=== PATIENT | male | born 1935 | race Caucasian/White ===

== ENCOUNTER 2016-11-08 12:26 | Outpatient (CLI) | payer OTHER, MEDICARE ==
[2016-11-08 12:57] LABS: BASOPHILS # (AUTO) 0.1 K/uL (0.0-0.2); BASOPHILS % (AUTO) 0.5 % (0.0-2.0); EOSINOPHILS # (AUTO) 0.7 K/uL (0.0-0.4); HEMATOCRIT 41.2 % (36-54); HEMOGLOBIN 14.1 g/dL (14.0-18.0); LYMPHOCYTES # (AUTO) 5.5 K/uL (1.0-5.5); LYMPHOCYTES % (AUTO) 47.9 % (20.5-51.5); MEAN CORPUSCULAR HEMOGLOBIN 32 pg (27-31); MEAN CORPUSCULAR HGB CONC 34 % (32-36); MEAN CORPUSCULAR VOLUME 94 fL (79.0-98.0); MONOCYTES # (AUTO) 0.8 K/uL (0.0-1.0); MONOCYTES % (AUTO) 6.7 % (1.7-9.3); NEUTROPHILS # (AUTO) 4.5 K/uL (1.8-7.7); NEUTROPHILS % (AUTO) 38.9 % (40.0-70.0); PLATELET COUNT (AUTO) 194 K/uL (130-430); RED BLOOD CELL COUNT(AUTO) 4.36 MIL/uL (4.2-6.2); RED CELL DISTRIBUTION WIDTH 12.1 % (9.0-15.0); WHITE BLOOD COUNT (AUTO) 11.6 K/uL (4.8-10.8)
[2016-11-08 14:04] LABS: ERYTHROCYTE SEDIMENTATION RATE 14 MM/HR (0-15)
== END 2016-11-08 19:20 | disposition home or self-care (01) ==
LOC: SRD 12:26
PROVIDERS: ATTEND Family Medicine
DX: M19.072 Primary osteoarthritis, left ankle and foot (principal); M79.89 Other specified soft tissue disorders; M77.32 Calcaneal spur, left foot; I10 Essential (primary) hypertension
CPT/HCPCS: 36415; 85025; 85651-TC; 86038; 86140

== ENCOUNTER 2017-04-10 21:52 | Inpatient (IN) | payer OTHER, MEDICARE ==
[~2017-04-10] VITALS: Ht 198.1 cm; Wt 104.3 kg
[2017-04-10 21:58] VITALS: BP_SYST 169
[2017-04-10 22:40] LABS: HEMATOCRIT 42.9 % (36-54); HEMOGLOBIN 14.4 g/dL (14.0-18.0); MEAN CORPUSCULAR HEMOGLOBIN 32 pg (27-31); MEAN CORPUSCULAR HGB CONC 34 % (32-36); MEAN CORPUSCULAR VOLUME 94 fL (79.0-98.0); PLATELET COUNT (AUTO) 146 K/uL (130-430); RED BLOOD CELL COUNT(AUTO) 4.55 MIL/uL (4.2-6.2); RED CELL DISTRIBUTION WIDTH 13.3 % (9.0-15.0)
[2017-04-10 22:44] LABS: ANION GAP 8 (5-15); CALCIUM 9.6 mg/dL (8.4-11.0); CHLORIDE 101 mmol/L (98-107); CREATININE 1.33 mg/dL (0.55-1.30); GLUCOSE 98 mg/dL (70-99); POTASSIUM 3.3 mmol/L (3.5-5.1); SODIUM SERUM 139 mmol/L (136-145); UREA NITROGEN, BLOOD 21 mg/dL (8-21)
[2017-04-10 22:45] LABS: WHITE BLOOD COUNT (AUTO) 36.5 K/uL (4.8-10.8)
[2017-04-10 22:48] LABS: ALANINE AMINOTRANSFERASE 35 U/L (12-78); ALBUMIN 3.8 g/dL (3.4-4.8); ASPARTATE AMINOTRANSFERASE 19 U/L (10-37); TOTAL BILIRUBIN 0.8 mg/dL (0.0-1.0)
[2017-04-10 22:50] LABS: INR 1.1 (0.80-1.20); PROTHROMBIN TIME 11.6 SECS (9.5-12.5)
[2017-04-10] MEDS ORDERED: VANCOMYCIN HCL 1,000 MG in NS 250 ML IV ONE (23:00)
[2017-04-10] MEDS ORDERED: PIPERACILLIN/TAZO 3.375 GM in NS 50 ML IV ONE (23:00)
[2017-04-10] MEDS ORDERED: NACL 0.9% 1,000 ML IV ONE (23:15)
[2017-04-10 23:19] LABS: ATYPICAL LYMPHOCYTES % 0 % (0-0); BAND % (MANUAL) 3 % (0-6); BASOPHILS % (MANUAL) 0 % (0-2); EOSINOPHILS % (MANUAL) 1 % (0-7); LYMPHOCYTES % (MANUAL) 58 % (20-46); MONOCYTES % (MANUAL) 3 % (0-11)
[2017-04-10] MEDS ORDERED: hydrALAZINE HCL 20 MG/ML VIAL IVP ONE (23:30)
[2017-04-10] MEDS ORDERED: PIPERACILLIN/TAZOBACTAM 3.375 GM/VIAL (ZOSYN) IV ONE (23:48)
[2017-04-11] MEDS ORDERED: METO25TA3 PO (00:02)
[2017-04-11] MEDS ORDERED: LOSA50TA3 PO (00:02)
[2017-04-11] MEDS ORDERED: HYDR25TA4 PO (00:02)
[2017-04-11] MEDS ORDERED: VANCOMYCIN HCL 1000 MG/VIAL IV ONE (00:06)
[2017-04-11] MEDS ORDERED: NACL 0.9% 1,000 ML IV ONE (00:15)
[2017-04-11] MEDS ORDERED: ONDANSETRON HCL 4 MG/2 ML VIAL IVP ONE (00:45)
[2017-04-11] MEDS ORDERED: TEMAZEPAM 7.5 MG CAPSULE PO PRN (01:00)
[2017-04-11 01:48] VITALS: BP_SYST 143
[2017-04-11] MEDS: NACL 0.9% 1,000 ML IV SCH ×2 (03:11→22:47)
[2017-04-11 04:00] VITALS: BP_SYST 132
[2017-04-11 05:36] LABS: BILIRUBIN,URINE NEGATIVE (NEGATIVE); CLARITY/URINE CLEAR (CLEAR); COLOR,URINE YELLOW (YELLOW); GLUCOSE,URINE NEGATIVE (NEGATIVE); KETONES,URINE NEGATIVE (NEGATIVE); LEUKOCYTE ESTERASE ,URINE NEGATIVE (NEGATIVE); NITRITE, URINE NEGATIVE (NEGATIVE); PROTEIN URINE NEGATIVE (NEGATIVE); UROBILINOGEN,URINE 0.2 (0.2-1.0)
[2017-04-11 05:38] LABS: BLOOD, URINE TRACE (NEGATIVE)
[2017-04-11 05:43] LABS: BACTERIA,URINE FEW /HPF (None Seen); RBC,URINE 0-3 /HPF (0-3); WBC,URINE 0-3 /HPF (0-3)
[2017-04-11 07:57] VITALS: BP_SYST 140
[2017-04-11] MEDS: LOSARTAN POTASSIUM 50 MG TABLET (COZAAR) PO SCH ×2 (08:51→22:42)
[2017-04-11] MEDS: METOPROLOL SUCCINATE 25 MG TAB.SR.24H (TOPROL XL) PO SCH (08:51)
[2017-04-11] MEDS ORDERED: METOPROLOL SUCCINATE 25 MG TAB.SR.24H (TOPROL XL) PO SCH (09:00)
[2017-04-11] MEDS ORDERED: PIPERACILLIN/TAZO 3.375 GM in NS 50 ML IV SCH (09:00)
[2017-04-11] MEDS ORDERED: PREDNISONE 10 MG TABLET PO ONE (10:00)
[2017-04-11] MEDS ORDERED: hydrALAZINE HCL 20 MG/ML VIAL IVP PRN (10:30)
[2017-04-11] MEDS ORDERED: VANCOMYCIN HCL 1,000 MG in NS 250 ML IV SCH (12:00)
[2017-04-11 12:46] VITALS: BP_SYST 145
[2017-04-11 13:23] LABS: HEMATOCRIT 34.3 % (36-54); HEMOGLOBIN 11.6 g/dL (14.0-18.0); MEAN CORPUSCULAR HEMOGLOBIN 32 pg (27-31); MEAN CORPUSCULAR HGB CONC 34 % (32-36); MEAN CORPUSCULAR VOLUME 94 fL (79.0-98.0); PLATELET COUNT (AUTO) 109 K/uL (130-430); RED BLOOD CELL COUNT(AUTO) 3.63 MIL/uL (4.2-6.2); RED CELL DISTRIBUTION WIDTH 13.5 % (9.0-15.0)
[2017-04-11 14:39] LABS: ATYPICAL LYMPHOCYTES % 0 % (0-0); BAND % (MANUAL) 0 % (0-6); LYMPHOCYTES % (MANUAL) 52 % (20-46)
[2017-04-11 14:40] LABS: BASOPHILS % (MANUAL) 0 % (0-2); EOSINOPHILS % (MANUAL) 0 % (0-7); MONOCYTES % (MANUAL) 6 % (0-11)
[2017-04-11] MEDS: AMPICILLIN SODIUM/SULBACTAM NA 1.5 GM in NS 50 ML IV SCH ×2 (15:19→22:42)
[2017-04-11 16:36] VITALS: BP_SYST 142
[2017-04-11 20:00] VITALS: BP_SYST 141
[2017-04-12] VITALS: BP_SYST 153
[2017-04-12 06:16] VITALS: BP_SYST 143
[2017-04-12] MEDS: AMPICILLIN SODIUM/SULBACTAM NA 1.5 GM in NS 50 ML IV SCH ×2 (06:16→13:08)
[2017-04-12 07:54] VITALS: BP_SYST 167
[2017-04-12] MEDS: LOSARTAN POTASSIUM 50 MG TABLET (COZAAR) PO SCH (08:20)
[2017-04-12] MEDS: METOPROLOL SUCCINATE 25 MG TAB.SR.24H (TOPROL XL) PO SCH (08:20)
[2017-04-12 08:37] LABS: ANION GAP 3 (5-15); CALCIUM 8.5 mg/dL (8.4-11.0); CHLORIDE 107 mmol/L (98-107); CREATININE 0.93 mg/dL (0.55-1.30); GLUCOSE 93 mg/dL (70-99); SODIUM SERUM 141 mmol/L (136-145); UREA NITROGEN, BLOOD 16 mg/dL (8-21)
[2017-04-12] MEDS ORDERED: PREDNISONE 10 MG TABLET PO SCH (09:00)
[2017-04-12] MEDS ORDERED: POTASSIUM CHLORIDE 20 MEQ TAB.PRT.SR PO ONE (10:00)
[2017-04-12 12:03] VITALS: BP_SYST 159
[2017-04-12 13:33] VITALS: BP_SYST 159
== END 2017-04-12 15:15 | disposition home or self-care (01) | DRG 596 ==
LOC: SED 21:52 → STU 04-11 00:48 → SMU 04-12 11:30
PROVIDERS: ADMIT Family Medicine; ATTEND Family Medicine
DX: L12.0 Bullous pemphigoid (principal); L03.116 Cellulitis of left lower limb; I10 Essential (primary) hypertension; N28.9 Disorder of kidney and ureter, unspecified; M19.90 Unspecified osteoarthritis, unspecified site; I16.0 Hypertensive urgency; B96.89 Other specified bacterial agents as the cause of diseases classified elsewhere; I87.2 Venous insufficiency (chronic) (peripheral); L84 Corns and callosities; Z91.048 Other nonmedicinal substance allergy status; Z90.79 Acquired absence of other genital organ(s); Z85.46 Personal history of malignant neoplasm of prostate; Z82.3 Family history of stroke; Z87.891 Personal history of nicotine dependence; Z88.8 Allergy status to other drugs, medicaments and biological substances; Z79.899 Other long term (current) drug therapy
CPT/HCPCS: 36415; 71010; 80048; 80053; 81000-TC; 82550-TC; 83605; 83880; 84484; 85007; 85027; 85610-TC; 87040-TC; 93005; 93971; 96365; 96366; 96367; 96375; 99285; J0295; J0360; J2405; J2543; J3370; J7030; J7050; J7512

== ENCOUNTER 2017-05-14 18:25 | Inpatient (IN) | payer OTHER, MEDICARE ==
[~2017-05-14] VITALS: Ht 198.1 cm; Wt 103.0 kg
[2017-05-14 18:25] VITALS: BP_SYST 167
[~2017-05-14 18:25] MED LIST: LOSA50TA3 PO; METO25TA3 PO
[2017-05-14] MEDS ORDERED: GLUCAGON,HUMAN RECOMBINANT 1 MG VIAL IVP ONE (19:15)
[2017-05-14] MEDS ORDERED: methylPREDNISolone SOD SUCC/PF 62.5 MG/ML VIAL IVP ONE (19:15)
[2017-05-14] MEDS ORDERED: NACL 0.9% 1,000 ML IV ONE (19:15)
[2017-05-14] MEDS ORDERED: ONDANSETRON HCL 4 MG/2 ML VIAL IVP ONE (19:45)
[2017-05-14 20:02] LABS: HEMATOCRIT 39.9 % (36-54); HEMOGLOBIN 13.6 g/dL (14.0-18.0); MEAN CORPUSCULAR HEMOGLOBIN 32 pg (27-31); MEAN CORPUSCULAR HGB CONC 34 % (32-36); MEAN CORPUSCULAR VOLUME 94 fL (79.0-98.0); PLATELET COUNT (AUTO) 170 K/uL (130-430); RED BLOOD CELL COUNT(AUTO) 4.23 MIL/uL (4.2-6.2); RED CELL DISTRIBUTION WIDTH 12.8 % (9.0-15.0); WHITE BLOOD COUNT (AUTO) 15.3 K/uL (4.8-10.8)
[2017-05-14 20:05] LABS: ANION GAP 8 (5-15); CALCIUM 9.3 mg/dL (8.4-11.0); CHLORIDE 111 mmol/L (98-107); CREATININE 1.07 mg/dL (0.55-1.30); GLUCOSE 117 mg/dL (70-99); SODIUM SERUM 145 mmol/L (136-145); UREA NITROGEN, BLOOD 24 mg/dL (8-21)
[2017-05-14 20:07] LABS: INR 1.1 (0.80-1.20); PROTHROMBIN TIME 12.2 SECS (9.5-12.5)
[2017-05-14 20:10] LABS: ALANINE AMINOTRANSFERASE 23 U/L (12-78); ALBUMIN 3.7 g/dL (3.4-4.8); ASPARTATE AMINOTRANSFERASE 26 U/L (10-37); TOTAL BILIRUBIN 1.1 mg/dL (0.0-1.0)
[2017-05-14 20:12] LABS: POTASSIUM 2.8 mmol/L (3.5-5.1)
[2017-05-14 20:21] LABS: ATYPICAL LYMPHOCYTES % 6 % (0-0); BAND % (MANUAL) 0 % (0-6); BASOPHILS % (MANUAL) 0 % (0-2); EOSINOPHILS % (MANUAL) 5 % (0-7); LYMPHOCYTES % (MANUAL) 55 % (20-46); MONOCYTES % (MANUAL) 7 % (0-11)
[2017-05-14] MEDS ORDERED: HYDR12.585 PO (20:56)
[2017-05-14] MEDS ORDERED: DOXY-168 PO (20:56)
[2017-05-14] MEDS ORDERED: LABETALOL 100 MG/ 20ML VIAL IVP ONE ×2 (22:45)
[2017-05-14] MEDS: PANTOPRAZOLE SODIUM 40 MG/VIAL (PROTONIX) IVP SCH (22:45)
[2017-05-14] MEDS: KCL 20 mEq in NS 1000 mL 1,000 ML IV SCH (22:46)
[2017-05-14] MEDS ORDERED: POTASSIUM CHLORIDE 40 MEQ in NS 250 ML IV ONE (23:15)
[2017-05-14] MEDS: hydrALAZINE HCL 20 MG/ML VIAL IVP PRN (23:38)
[2017-05-14] MEDS ORDERED: PANTOPRAZOLE SODIUM 40 MG/VIAL (PROTONIX) IVP ONE (23:45)
[2017-05-14] MEDS ORDERED: KCL 40 mEq in 100 mL (PREMIX) 100 ML IV ONE (23:54)
[2017-05-15] VITALS (10 sets, daily range): BP systolic 122–197
[2017-05-15] MEDS: hydrALAZINE HCL 20 MG/ML VIAL IVP PRN (07:51)
[2017-05-15 08:19] LABS: ANION GAP 8 (5-15); CALCIUM 8.5 mg/dL (8.4-11.0); CHLORIDE 111 mmol/L (98-107); GLUCOSE 159 mg/dL (70-99); POTASSIUM 3.2 mmol/L (3.5-5.1); SODIUM SERUM 146 mmol/L (136-145); UREA NITROGEN, BLOOD 20 mg/dL (8-21)
[2017-05-15] MEDS ORDERED: ONDANSETRON HCL 4 MG/2 ML VIAL IVP PRN (08:30)
[2017-05-15] MEDS: PANTOPRAZOLE SODIUM 40 MG/VIAL (PROTONIX) IVP SCH (10:36)
[2017-05-15] MEDS: KCL 20 mEq in NS 1000 mL 1,000 ML IV SCH (10:38)
[2017-05-15] MEDS: LABETALOL 100 MG/ 20ML VIAL IVP SCH ×2 (12:50→18:00)
[2017-05-15] MEDS: KCL 20 mEq in D5NS 1000 mL 1,000 ML IV SCH (15:36)
[2017-05-15] MEDS: hydrALAZINE HCL 20 MG/ML VIAL IVP SCH (23:44)
[2017-05-16] MEDS ORDERED: LABETALOL 100 MG/ 20ML VIAL IVP SCH
[2017-05-16 00:35] VITALS: BP_SYST 165
[2017-05-16] MEDS: KCL 20 mEq in D5NS 1000 mL 1,000 ML IV SCH (03:07)
[2017-05-16 04:17] VITALS: BP_SYST 143
[2017-05-16] MEDS: hydrALAZINE HCL 20 MG/ML VIAL IVP SCH ×3 (05:40→17:33)
[2017-05-16 07:37] LABS: INR 1.1 (0.80-1.20); PROTHROMBIN TIME 12.2 SECS (9.5-12.5)
[2017-05-16] MEDS: MIDAZOLAM HCL 5 MG/5 ML VIAL ONE ×2 (08:40→08:44)
[2017-05-16] MEDS: fentaNYL CITRATE/PF 100 MCG/2 ML AMP ONE ×2 (08:40→08:44)
[2017-05-16] MEDS: ENOXAPARIN SODIUM 40 MG/0.4 ML SYRINGE SUBCUT SCH (09:00)
[2017-05-16 10:17] VITALS: BP_SYST 159
[2017-05-16 11:59] VITALS: BP_SYST 159
[2017-05-16] MEDS ORDERED: MILK OF MAGNESIA 30 ML UDC PO PRN (13:45)
[2017-05-16] MEDS: NACL 0.9% 1,000 ML IV SCH (17:29)
[2017-05-16 18:15] VITALS: BP_SYST 144
[2017-05-16 20:00] VITALS: BP_SYST 147
[2017-05-16] MEDS: PANTOPRAZOLE SODIUM 40 MG TAB PO SCH (21:12)
[2017-05-17] VITALS (8 sets, daily range): BP systolic 125–179
[2017-05-17] MEDS: NACL 0.9% 1,000 ML IV SCH (06:31)
[2017-05-17] MEDS: hydrALAZINE HCL 20 MG/ML VIAL IVP PRN ×2 (06:37→16:40)
[2017-05-17] MEDS: METOPROLOL SUCCINATE 50 MG TAB.SR.24H (TOPROL XL) PO SCH ×2 (08:18→18:01)
[2017-05-17] MEDS: PANTOPRAZOLE SODIUM 40 MG TAB PO SCH (08:18)
[2017-05-17] MEDS: ENOXAPARIN SODIUM 40 MG/0.4 ML SYRINGE SUBCUT SCH (08:19)
[2017-05-17] MEDS: LOSARTAN POTASSIUM 50 MG TABLET (COZAAR) PO SCH ×2 (08:19→18:02)
[2017-05-17 10:14] LABS: BASOPHILS # (AUTO) 0.1 K/uL (0.0-0.2); BASOPHILS % (AUTO) 0.4 % (0.0-2.0); EOSINOPHILS # (AUTO) 0.9 K/uL (0.0-0.4); EOSINOPHILS % (AUTO) 5.3 % (0.0-4.0); LYMPHOCYTES # (AUTO) 7.9 K/uL (1.0-5.5); LYMPHOCYTES % (AUTO) 47.8 % (20.5-51.5); MEAN CORPUSCULAR HEMOGLOBIN 32 pg (27-31); MEAN CORPUSCULAR HGB CONC 34 % (32-36); MEAN CORPUSCULAR VOLUME 94 fL (79.0-98.0); MONOCYTES # (AUTO) 1.4 K/uL (0.0-1.0); MONOCYTES % (AUTO) 8.1 % (1.7-9.3); NEUTROPHILS # (AUTO) 6.4 K/uL (1.8-7.7); NEUTROPHILS % (AUTO) 38.4 % (40.0-70.0); PLATELET COUNT (AUTO) 160 K/uL (130-430); RED BLOOD CELL COUNT(AUTO) 4.03 MIL/uL (4.2-6.2); RED CELL DISTRIBUTION WIDTH 13.2 % (9.0-15.0); WHITE BLOOD COUNT (AUTO) 16.7 K/uL (4.8-10.8)
[2017-05-17 10:19] LABS: ANION GAP 4 (5-15); CHLORIDE 113 mmol/L (98-107); GLUCOSE 138 mg/dL (70-99); SODIUM SERUM 143 mmol/L (136-145); UREA NITROGEN, BLOOD 16 mg/dL (8-21)
[2017-05-17 10:22] LABS: POTASSIUM 2.7 mmol/L (3.5-5.1)
[2017-05-17 10:24] LABS: ALANINE AMINOTRANSFERASE 74 U/L (12-78); ASPARTATE AMINOTRANSFERASE 70 U/L (10-37); TOTAL BILIRUBIN 1.3 mg/dL (0.0-1.0)
[2017-05-17] MEDS ORDERED: POTASSIUM CHLORIDE 40 MEQ in 0.45% NS 250 ML IV ONE (10:45)
[2017-05-17] MEDS ORDERED: COMMUNICATION ORDER XX ONE (10:45)
[2017-05-17] MEDS ORDERED: DIF100 PO (11:20)
[2017-05-17] MEDS ORDERED: FLUCONAZOLE 200 MG TABLET (DIFLUCAN) PO ONE (11:30)
[2017-05-17] MEDS ORDERED: FLU VACC QS 2017-18(36MOS+)/PF 0.5 ML/SYR SYRINGE I.M. PRN (13:00)
[2017-05-17] MEDS ORDERED: POTASSIUM CHLORIDE 20 MEQ TAB.PRT.SR PO ONE (17:30)
[2017-05-17] MEDS ORDERED: LABETALOL HCL 100 MG TABLET PO SCH (18:00)
[2017-05-17] MEDS ORDERED: hydrALAZINE HCL 20 MG/ML VIAL IVP ONE (18:15)
== END 2017-05-17 19:20 | disposition home or self-care (01) | DRG 392 ==
LOC: SED 18:25 → SMU 21:05 → STU 05-15 11:54
PROVIDERS: ADMIT Family Medicine; ATTEND Family Medicine
PROC: 0DB18ZX Excision of Upper Esophagus, Via Natural or Artificial Opening Endoscopic, Diagnostic (ICD-10-PCS; 2017-05-16)
PROC: 0DC68ZZ Extirpation of Matter from Stomach, Via Natural or Artificial Opening Endoscopic (ICD-10-PCS; principal; 2017-05-16 13:00)
PROC: 0DB38ZX Excision of Lower Esophagus, Via Natural or Artificial Opening Endoscopic, Diagnostic (ICD-10-PCS; 2017-05-16 13:00)
DX: K20.0 Eosinophilic esophagitis (principal); L10.9 Pemphigus, unspecified; I10 Essential (primary) hypertension; I16.9 Hypertensive crisis, unspecified; L12.0 Bullous pemphigoid; R13.19 Other dysphagia; E87.6 Hypokalemia; K44.9 Diaphragmatic hernia without obstruction or gangrene; K22.4 Dyskinesia of esophagus; Z85.46 Personal history of malignant neoplasm of prostate; Z90.79 Acquired absence of other genital organ(s); Z79.899 Other long term (current) drug therapy; Z88.8 Allergy status to other drugs, medicaments and biological substances; Z87.891 Personal history of nicotine dependence
CPT/HCPCS: 36415; 43239; 43247; 70490; 80048; 80053; 84132-TC; 85007; 85025; 85027; 85610-TC; 85730-TC; 88305; 88312; 88313; 96361; 96374; 96375; 99285; C1733; C9113; J0360; J1610; J1650; J2250; J2405; J2930; J3010; J3480; J3490; J7030; J7050; Q2037

== ENCOUNTER 2018-01-19 18:47 | Inpatient (IN) | payer OTHER, MEDICARE ==
[~2018-01-19] VITALS: Ht 198.1 cm; Wt 102.1 kg
[~2018-01-19 18:47] MED LIST changes: +DIF100 PO; +DOXY-168 PO; +HYDR12.585 PO
[2018-01-19 19:11] VITALS: BP_SYST 205
[2018-01-19] MEDS ORDERED: hydrALAZINE HCL 20 MG/ML VIAL IVP ONE (20:15)
[2018-01-19] MEDS ORDERED: NACL 0.9% 1,000 ML IV ONE (20:15)
[2018-01-19 20:29] LABS: EOSINOPHILS # (AUTO) 0.4 K/uL (0.0-0.4); MEAN CORPUSCULAR HEMOGLOBIN 36 pg (27-31); MEAN CORPUSCULAR HGB CONC 35 % (32-36); MEAN CORPUSCULAR VOLUME 103 fL (79.0-98.0)
[2018-01-19] MEDS ORDERED: GLUCAGON,HUMAN RECOMBINANT 1 MG VIAL IVP ONE (20:30)
[2018-01-19 20:34] LABS: BASOPHILS # (AUTO) 0.4 K/uL (0.0-0.2); BASOPHILS % (AUTO) 2.3 % (0.0-2.0); EOSINOPHILS % (AUTO) 2.6 % (0.0-4.0); HEMATOCRIT 34.8 % (36-54); HEMOGLOBIN 12.1 g/dL (14.0-18.0); MONOCYTES # (AUTO) 0.6 K/uL (0.0-1.0); MONOCYTES % (AUTO) 4.1 % (1.7-9.3); NEUTROPHILS # (AUTO) 5.2 K/uL (1.8-7.7); NEUTROPHILS % (AUTO) 33.2 % (40.0-70.0); PLATELET COUNT (AUTO) 178 K/uL (130-430); RED BLOOD CELL COUNT(AUTO) 3.39 MIL/uL (4.2-6.2); RED CELL DISTRIBUTION WIDTH 14.1 % (9.0-15.0); WHITE BLOOD COUNT (AUTO) 15.6 K/uL (4.8-10.8)
[2018-01-19 20:41] LABS: LYMPHOCYTES % (AUTO) 57.8 % (20.5-51.5)
[2018-01-19 20:48] LABS: ANION GAP 8 (5-15); CALCIUM 9.3 mg/dL (8.4-11.0); CHLORIDE 106 mmol/L (98-107); CREATININE 1.13 mg/dL (0.55-1.30); GLUCOSE 92 mg/dL (70-99); POTASSIUM 3.1 mmol/L (3.5-5.1); SODIUM SERUM 143 mmol/L (136-145); UREA NITROGEN, BLOOD 22 mg/dL (8-21)
[2018-01-19 20:57] LABS: ALANINE AMINOTRANSFERASE 31 U/L (12-78); ALBUMIN 4.1 g/dL (3.4-4.8); ASPARTATE AMINOTRANSFERASE 24 U/L (10-37); TOTAL BILIRUBIN 1.1 mg/dL (0.0-1.0)
[2018-01-19 21:02] LABS: INR 1.1 (0.80-1.20); PROTHROMBIN TIME 11.1 SECS (9.5-12.5)
[2018-01-19] MEDS ORDERED: DIPHENHYDRAMINE INJ 50 MG/ML VIAL ONE (21:11)
[2018-01-19] MEDS ORDERED: methylPREDNISolone SOD SUCC/PF 62.5 MG/ML VIAL ONE (21:12)
[2018-01-19] MEDS ORDERED: DIPHENHYDRAMINE INJ 50 MG/ML VIAL IVP ONE (21:15)
[2018-01-19] MEDS ORDERED: LORazepam 2 MG/ML VIAL (FOR ER USE) IVP ONE (21:15)
[2018-01-19] MEDS ORDERED: methylPREDNISolone SOD SUCC/PF 62.5 MG/ML VIAL IVP ONE (21:15)
[2018-01-19] MEDS ORDERED: FOLI-43 PO (21:29)
[2018-01-19] MEDS ORDERED: PRED5TAB PO (21:29)
[2018-01-19] MEDS ORDERED: METO-306 PO (21:29)
[2018-01-19] MEDS ORDERED: METH2.5T PO (21:29)
[2018-01-19] MEDS ORDERED: METOPROLOL TARTRATE 5 MG/5 ML VIAL IVP ONE (21:30)
[2018-01-19] MEDS ORDERED: OXYMETAZOLINE HCL 0.05% NASAL SPRAY NS ONE (21:30)
[2018-01-19 22:05] VITALS: BP_SYST 198
[2018-01-19] MEDS ORDERED: MUPIROCIN 2% TOPICAL OINTMENT 22 GM NS PRN (22:30)
[2018-01-19] MEDS ORDERED: ACETAMINOPHEN 325 MG TABLET PO PRN (22:30)
[2018-01-19] MEDS ORDERED: ONDANSETRON HCL 4 MG/2 ML VIAL IVP PRN (22:30)
[2018-01-19] MEDS ORDERED: POTASSIUM CHLORIDE 40 MEQ, LIDOCAINE JECT 2% PF 100 MG 50 MG in NS 250 ML IV PRN (22:30)
[2018-01-19] MEDS ORDERED: DOCUSATE SODIUM 100 MG CAPSULE PO PRN (22:30)
[2018-01-19] MEDS ORDERED: POTASSIUM CHLORIDE 20 MEQ TAB.PRT.SR PO PRN (22:30)
[2018-01-19] MEDS ORDERED: LORazepam 2 MG/ML VIAL IVP PRN (22:30)
[2018-01-19] MEDS ORDERED: ZOLPIDEM TARTRATE 5 MG TABLET PO PRN (22:30)
[2018-01-19] MEDS ORDERED: MAGNESIUM SULFATE 50 ML IV PRN (22:30)
[2018-01-19] MEDS ORDERED: METOPROLOL TARTRATE 5 MG/5 ML VIAL IVP PRN (22:30)
[2018-01-19] MEDS ORDERED: MORPHINE 4 MG/ML INJ. SYRINGE IVP PRN ×2 (22:30)
[2018-01-20] MEDS: D5NS 1,000 ML IV SCH ×2 (00:11→16:22)
[2018-01-20 00:13] VITALS: BP_SYST 158
[2018-01-20] MEDS ORDERED: LIDOCAINE JECT 2% PF 100 MG/5ML SYRINGE ONE (00:27)
[2018-01-20] MEDS ORDERED: KCL 40 mEq in 100 mL (PREMIX) 100 ML IV ONE (00:57)
[2018-01-20 06:35] LABS: BASOPHILS # (AUTO) 0.1 K/uL (0.0-0.2); BASOPHILS % (AUTO) 0.6 % (0.0-2.0); EOSINOPHILS % (AUTO) 0.1 % (0.0-4.0); HEMATOCRIT 38.7 % (36-54); HEMOGLOBIN 13.3 g/dL (14.0-18.0); LYMPHOCYTES % (AUTO) 65.8 % (20.5-51.5); MEAN CORPUSCULAR HEMOGLOBIN 36 pg (27-31); MEAN CORPUSCULAR HGB CONC 34 % (32-36); MEAN CORPUSCULAR VOLUME 105 fL (79.0-98.0); MONOCYTES # (AUTO) 0.2 K/uL (0.0-1.0); MONOCYTES % (AUTO) 1.5 % (1.7-9.3); NEUTROPHILS # (AUTO) 5.3 K/uL (1.8-7.7); PLATELET COUNT (AUTO) 187 K/uL (130-430); RED CELL DISTRIBUTION WIDTH 13.7 % (9.0-15.0); WHITE BLOOD COUNT (AUTO) 16.6 K/uL (4.8-10.8)
[2018-01-20 06:53] LABS: ANION GAP 8 (5-15); CALCIUM 9.1 mg/dL (8.4-11.0); CHLORIDE 107 mmol/L (98-107); CREATININE 1.15 mg/dL (0.55-1.30); GLUCOSE 158 mg/dL (70-99); POTASSIUM 3.6 mmol/L (3.5-5.1); SODIUM SERUM 141 mmol/L (136-145); UREA NITROGEN, BLOOD 23 mg/dL (8-21)
[2018-01-20 07:52] LABS: BILIRUBIN,URINE 1+ (NEGATIVE); BLOOD, URINE NEGATIVE (NEGATIVE); CLARITY/URINE CLEAR (CLEAR); COLOR,URINE YELLOW (YELLOW); GLUCOSE,URINE NEGATIVE (NEGATIVE); KETONES,URINE 3+ (NEGATIVE); LEUKOCYTE ESTERASE ,URINE NEGATIVE (NEGATIVE); NITRITE, URINE NEGATIVE (NEGATIVE); PROTEIN URINE TRACE (NEGATIVE); UROBILINOGEN,URINE 0.2 (0.2-1.0)
[2018-01-20 08:00] VITALS: BP_SYST 199
[2018-01-20 08:10] LABS: BACTERIA,URINE FEW /HPF (None Seen); MUCUS,URINE 1+ /LPF (None Seen); RBC,URINE 0-3 /HPF (0-3); WBC,URINE 0-3 /HPF (0-3)
[2018-01-20] MEDS ORDERED: fentaNYL CITRATE/PF 100 MCG/2 ML AMP ONE (08:31)
[2018-01-20] MEDS ORDERED: MIDAZOLAM HCL 5 MG/5 ML VIAL ONE (08:32)
[2018-01-20] MEDS ORDERED: METOPROLOL TARTRATE 5 MG/5 ML VIAL IVP PRN (09:15)
[2018-01-20] MEDS ORDERED: PANTOPRAZOLE SODIUM 40 MG/VIAL (PROTONIX) IVP ONE (10:00)
[2018-01-20] MEDS ORDERED: cefTRIAXone 1 GM in D5W 50 ML IV ONE (10:00)
[2018-01-20] MEDS: HEPARIN SODIUM,PORCINE 5000 UNITS/ML VIAL SUBCUT SCH ×2 (10:05→20:46)
[2018-01-20 12:00] VITALS: BP_SYST 177
[2018-01-20] MEDS: LABETALOL 100 MG/ 20ML VIAL IVP PRN ×2 (12:09→16:39)
[2018-01-20 16:00] VITALS: BP_SYST 165
[2018-01-20] MEDS: HYDROCORTISONE SOD SUCC 100 MG/2 ML VIAL IVP SCH ×2 (16:20→22:28)
[2018-01-20] MEDS: VANCOMYCIN HCL 1,000 MG in NS 250 ML IV SCH (18:31)
[2018-01-20 19:05] VITALS: BP_SYST 147
[2018-01-20] MEDS: PANTOPRAZOLE SODIUM 40 MG/VIAL (PROTONIX) IVP SCH (20:49)
[2018-01-21] VITALS (10 sets, daily range): BP systolic 153–190
[2018-01-21] MEDS: VANCOMYCIN HCL 1,000 MG in NS 250 ML IV SCH ×2 (05:45→18:03)
[2018-01-21] MEDS: HYDROCORTISONE SOD SUCC 100 MG/2 ML VIAL IVP SCH ×3 (05:46→22:06)
[2018-01-21] MEDS: D5NS 1,000 ML IV SCH (05:48)
[2018-01-21 07:28] LABS: ANION GAP 7 (5-15); CALCIUM 8.4 mg/dL (8.4-11.0); CHLORIDE 108 mmol/L (98-107); CHOLESTEROL 163 mg/dL (<200); CREATININE 1.15 mg/dL (0.55-1.30); GLUCOSE 131 mg/dL (70-99); HDL CHOLESTEROL 43 mg/dL (>45); LDL CHOLESTEROL 100 mg/dL (<100); SODIUM SERUM 141 mmol/L (136-145); THYROID STIMULATING HORMONE 0.98 uIu/mL (0.34-4.82); TRIGLYCERIDES 87 mg/dL (30-150); UREA NITROGEN, BLOOD 22 mg/dL (8-21)
[2018-01-21 07:34] LABS: BASOPHILS # (AUTO) 0.6 K/uL (0.0-0.2); BASOPHILS % (AUTO) 3.3 % (0.0-2.0); EOSINOPHILS % (AUTO) 0.2 % (0.0-4.0); HEMATOCRIT 34.9 % (36-54); HEMOGLOBIN 12.2 g/dL (14.0-18.0); LYMPHOCYTES # (AUTO) 8.7 K/uL (1.0-5.5); LYMPHOCYTES % (AUTO) 46.5 % (20.5-51.5); MEAN CORPUSCULAR HEMOGLOBIN 36 pg (27-31); MEAN CORPUSCULAR HGB CONC 35 % (32-36); MEAN CORPUSCULAR VOLUME 104 fL (79.0-98.0); MONOCYTES # (AUTO) 0.8 K/uL (0.0-1.0); MONOCYTES % (AUTO) 4.5 % (1.7-9.3); NEUTROPHILS # (AUTO) 8.4 K/uL (1.8-7.7); NEUTROPHILS % (AUTO) 45.5 % (40.0-70.0); PLATELET COUNT (AUTO) 182 K/uL (130-430); RED BLOOD CELL COUNT(AUTO) 3.36 MIL/uL (4.2-6.2); RED CELL DISTRIBUTION WIDTH 14.2 % (9.0-15.0)
[2018-01-21 07:46] LABS: WHITE BLOOD COUNT (AUTO) 18.5 K/uL (4.8-10.8)
[2018-01-21] MEDS: LABETALOL 100 MG/ 20ML VIAL IVP PRN ×4 (08:45→22:07)
[2018-01-21] MEDS: cefTRIAXone 1 GM in D5W 50 ML IV SCH (08:46)
[2018-01-21] MEDS: HEPARIN SODIUM,PORCINE 5000 UNITS/ML VIAL SUBCUT SCH ×2 (08:53→20:09)
[2018-01-21] MEDS: PANTOPRAZOLE SODIUM 40 MG/VIAL (PROTONIX) IVP SCH ×2 (08:54→20:10)
[2018-01-21] MEDS ORDERED: LOSARTAN POTASSIUM 50 MG TABLET (COZAAR) PO ONE (10:00)
[2018-01-21] MEDS ORDERED: METOPROLOL TARTRATE 50 MG TABLET PO ONE (10:15)
[2018-01-21 15:20] LABS: ANION GAP 4 (5-15); CALCIUM 8.4 mg/dL (8.4-11.0); CHLORIDE 108 mmol/L (98-107); GLUCOSE 143 mg/dL (70-99); POTASSIUM 3.2 mmol/L (3.5-5.1); SODIUM SERUM 138 mmol/L (136-145); UREA NITROGEN, BLOOD 21 mg/dL (8-21)
[2018-01-21] MEDS ORDERED: POTASSIUM CHLORIDE 20 MEQ TAB.PRT.SR PO ONE (17:15)
[2018-01-21] MEDS ORDERED: POTASSIUM CHLORIDE 20 MEQ TAB.PRT.SR ONE (18:19)
[2018-01-21] MEDS: LOSARTAN POTASSIUM 50 MG TABLET (COZAAR) PO SCH (20:07)
[2018-01-21] MEDS: METOPROLOL TARTRATE 50 MG TABLET PO SCH (20:08)
[2018-01-22] VITALS (7 sets, daily range): BP systolic 166–212
[2018-01-22] MEDS: D5NS 1,000 ML IV SCH ×2 (00:30→03:49)
[2018-01-22] MEDS: LABETALOL 100 MG/ 20ML VIAL IVP PRN ×2 (02:02→13:26)
[2018-01-22] MEDS: VANCOMYCIN HCL 1,000 MG in NS 250 ML IV SCH ×2 (05:43→17:47)
[2018-01-22] MEDS: HYDROCORTISONE SOD SUCC 100 MG/2 ML VIAL IVP SCH ×2 (05:43→13:07)
[2018-01-22 07:03] LABS: BASOPHILS # (AUTO) 0.3 K/uL (0.0-0.2); BASOPHILS % (AUTO) 1.6 % (0.0-2.0); EOSINOPHILS # (AUTO) 0.1 K/uL (0.0-0.4); EOSINOPHILS % (AUTO) 0.6 % (0.0-4.0); LYMPHOCYTES # (AUTO) 10.9 K/uL (1.0-5.5); LYMPHOCYTES % (AUTO) 60.2 % (20.5-51.5); MEAN CORPUSCULAR HEMOGLOBIN 35 pg (27-31); MEAN CORPUSCULAR HGB CONC 33 % (32-36); MEAN CORPUSCULAR VOLUME 105 fL (79.0-98.0); MONOCYTES # (AUTO) 0.9 K/uL (0.0-1.0); MONOCYTES % (AUTO) 5.2 % (1.7-9.3); NEUTROPHILS # (AUTO) 5.8 K/uL (1.8-7.7); NEUTROPHILS % (AUTO) 32.4 % (40.0-70.0); PLATELET COUNT (AUTO) 167 K/uL (130-430); RED BLOOD CELL COUNT(AUTO) 3.13 MIL/uL (4.2-6.2); RED CELL DISTRIBUTION WIDTH 14.5 % (9.0-15.0)
[2018-01-22 07:34] LABS: ANION GAP 6 (5-15); CALCIUM 8.5 mg/dL (8.4-11.0); CHLORIDE 112 mmol/L (98-107); GLUCOSE 116 mg/dL (70-99); POTASSIUM 3.2 mmol/L (3.5-5.1); SODIUM SERUM 143 mmol/L (136-145); UREA NITROGEN, BLOOD 17 mg/dL (8-21)
[2018-01-22] MEDS: METOPROLOL TARTRATE 50 MG TABLET PO SCH (08:06)
[2018-01-22] MEDS: LOSARTAN POTASSIUM 50 MG TABLET (COZAAR) PO SCH (08:07)
[2018-01-22] MEDS: HEPARIN SODIUM,PORCINE 5000 UNITS/ML VIAL SUBCUT SCH (08:14)
[2018-01-22] MEDS: cefTRIAXone 1 GM in D5W 50 ML IV SCH (08:20)
[2018-01-22] MEDS: PANTOPRAZOLE SODIUM 40 MG/VIAL (PROTONIX) IVP SCH (08:23)
[2018-01-22] MEDS ORDERED: HYDROCHLOROTHIAZIDE 25 MG TABLET (HCTZ) PO SCH (09:00)
[2018-01-22] MEDS ORDERED: POLYETHYLENE GLYCOL 3350, 17 GM/ POWD.PACK PO SCH (09:00)
[2018-01-22] MEDS ORDERED: cloNIDine HCL 0.1 MG TABLET PO SCH (09:00)
[2018-01-22] MEDS ORDERED: POTASSIUM CHLORIDE 20 MEQ TAB.PRT.SR PO SCH (09:00)
[2018-01-22 09:18] LABS: ANION GAP 12 (5-15); CALCIUM 8.6 mg/dL (8.4-11.0); CHLORIDE 110 mmol/L (98-107); CREATININE 1.09 mg/dL (0.55-1.30); GLUCOSE 155 mg/dL (70-99); POTASSIUM 3.3 mmol/L (3.5-5.1); SODIUM SERUM 144 mmol/L (136-145); UREA NITROGEN, BLOOD 16 mg/dL (8-21)
[2018-01-22] MEDS ORDERED: cloNIDine HCL 0.1 MG TABLET PO ONE (15:15)
[2018-01-22] MEDS ORDERED: HYDR50TA3 PO (15:20)
[2018-01-22] MEDS ORDERED: FUROSEMIDE 40 MG/4 ML VIAL IVP ONE (15:30)
[2018-01-22] MEDS ORDERED: POTASSIUM CHLORIDE 20 MEQ TAB.PRT.SR PO ONE (15:30)
== END 2018-01-22 19:00 | disposition home or self-care (01) | DRG 394 ==
LOC: SED 18:47 → SMU 21:46 → STU 22:06
PROVIDERS: ADMIT General Practice; ATTEND General Practice
PROC: 0DB58ZX Excision of Esophagus, Via Natural or Artificial Opening Endoscopic, Diagnostic (ICD-10-PCS; 2018-01-20)
PROC: 0DC38ZZ Extirpation of Matter from Lower Esophagus, Via Natural or Artificial Opening Endoscopic (ICD-10-PCS; principal; 2018-01-20 09:00)
DX: T18.128A Food in esophagus causing other injury, initial encounter (principal); L03.116 Cellulitis of left lower limb; L03.115 Cellulitis of right lower limb; L12.0 Bullous pemphigoid; K22.2 Esophageal obstruction; E87.6 Hypokalemia; K22.4 Dyskinesia of esophagus; I10 Essential (primary) hypertension; M17.12 Unilateral primary osteoarthritis, left knee; T38.0X5A Adverse effect of glucocorticoids and synthetic analogues, initial encounter; K20.0 Eosinophilic esophagitis; M19.90 Unspecified osteoarthritis, unspecified site; X58.XXXA Exposure to other specified factors, initial encounter; Y93.89 Activity, other specified; Y92.89 Other specified places as the place of occurrence of the external cause; Z91.14 Patient's other noncompliance with medication regimen; Y99.8 Other external cause status; Z79.52 Long term (current) use of systemic steroids; Z79.899 Other long term (current) drug therapy; Z85.46 Personal history of malignant neoplasm of prostate; Z87.891 Personal history of nicotine dependence
CPT/HCPCS: 36415; 43239; 71045; 80048; 80053; 80061; 81000-TC; 83735-TC; 84443-TC; 84484; 85025; 85610-TC; 85730-TC; 87040-TC; 88305; 88312; 93005; 96361; 96374; 96375; 99285; C9113; J0360; J0696; J1200; J1610; J1644; J1720; J1940; J2060; J2250; J2930; J3010; J3370; J3480; J3490; J7030; J7042; J7050; J7060

== ENCOUNTER 2020-06-29 17:34 | Emergency (ER) | payer OTHER, MEDICARE ==
[~2020-06-29] VITALS: Ht 193 cm; Wt 99.8 kg
[~2020-06-29 17:34] MED LIST changes: -DOXY-168 PO; +DOXY-244 PO; +FOLI-43 PO; +HYDR50TA3 PO; +METH2.5T PO; +METO-542 PO; +PRED5TAB PO
--- NOTE | 2020-06-29 17:35 | NUR ---
Placed in room 05 . Placed on manager monitoring, blood pressure machine and pulse oximeter. To gown for exam. Side rails up.
--- NOTE | 2020-06-29 17:46 | NUR ---
ER Dr. RUSSELL at bedside examining patient.
[2020-06-29 17:48] VITALS: BP_SYST 255
--- NOTE | 2020-06-29 17:50 | NUR ---
PT AAO AND AMBULATORY C/O HIGH BLOOD PRESSURE TODAY 255/132 WITH NAUSEA AND NO PAIN. PT DENIES ANY OTHER SYMPTOM AT THIS TIME.
--- NOTE | 2020-06-29 17:57 | NUR ---
PORTABLE CXR DONE AT BEDSIDE
[2020-06-29] MEDS ORDERED: cloNIDine HCL 0.1 MG TABLET PO ONE (18:00)
[2020-06-29] MEDS ORDERED: NITROGLYCERIN 0.4 MG TAB.SUBL SL ONE (18:00)
--- NOTE | 2020-06-29 18:12 | NUR ---
BP NOW 186/117 AND LAB AT BEDSIDE FOR BLOOD DRAW.
--- NOTE | 2020-06-29 18:25 | NUR ---
CALM, ALERT, DENIES CP/SOB. RESP UNLABORED. NTG GIVEN.DR RUSSELL TO BEDSIDE
[2020-06-29 18:30] LABS: BASOPHILS # (AUTO) 0.1 K/uL (0.0-0.2); BASOPHILS % (AUTO) 0.6 % (0.0-2.0); EOSINOPHILS # (AUTO) 0.2 K/uL (0.0-0.4); EOSINOPHILS % (AUTO) 2.9 % (0.0-4.0); HEMOGLOBIN 14.6 g/dL (14.0-18.0); LYMPHOCYTES # (AUTO) 3.1 K/uL (1.0-5.5); LYMPHOCYTES % (AUTO) 35.9 % (20.5-51.5); MEAN CORPUSCULAR HEMOGLOBIN 33 pg (27-31); MEAN CORPUSCULAR HGB CONC 34 % (32-36); MEAN CORPUSCULAR VOLUME 98 fL (79.0-98.0); MONOCYTES # (AUTO) 0.6 K/uL (0.0-1.0); MONOCYTES % (AUTO) 7.4 % (1.7-9.3); NEUTROPHILS # (AUTO) 4.5 K/uL (1.8-7.7); NEUTROPHILS % (AUTO) 53.2 % (40.0-70.0); PLATELET COUNT (AUTO) 166 K/uL (130-430); RED BLOOD CELL COUNT(AUTO) 4.41 MIL/uL (4.2-6.2); RED CELL DISTRIBUTION WIDTH 13.7 % (9.0-15.0); WHITE BLOOD COUNT (AUTO) 8.5 K/uL (4.8-10.8)
--- NOTE | 2020-06-29 18:45 | NUR ---
UPDATE TO FAMILY [facility] [phone]
[2020-06-29 18:53] LABS: ANION GAP 7 (5-15); CALCIUM 9.4 mg/dL (8.4-11.0); CHLORIDE 101 mmol/L (98-107); CREATININE 1.26 mg/dL (0.55-1.30); GLUCOSE 98 mg/dL (70-99); SODIUM SERUM 140 mmol/L (136-145); UREA NITROGEN, BLOOD 21 mg/dL (8-21)
[2020-06-29 19:00] LABS: ALANINE AMINOTRANSFERASE 34 U/L (12-78); ALBUMIN 3.6 g/dL (3.4-4.8); ASPARTATE AMINOTRANSFERASE 23 U/L (10-37); TOTAL BILIRUBIN 0.7 mg/dL (0.0-1.0)
[2020-06-29 19:04] LABS: PROTHROMBIN TIME 10.5 SECS (9.5-12.5)
[2020-06-29] MEDS ORDERED: POTASSIUM CHLORIDE 20 MEQ/PKT PACKET PO ONE (19:30)
--- NOTE | 2020-06-29 19:57 | NUR ---
Patient given written and verbal discharge instructions and verbalizes understanding. ER MD discussed with patient the results and treatment provided. Patient in stable condition. ID arm band removed. Rx of CLONIDINE given. Patient educated on pain management and to follow up with PMD. Pain Scale 0/10 Opportunity for questions provided and answered. Medication side effect fact sheet provided.
[2020-06-29 19:59] VITALS: BP_SYST 157
== END 2020-06-29 19:59 | disposition home or self-care (01) ==
LOC: SED 17:34
DX: I16.0 Hypertensive urgency (principal); Z79.899 Other long term (current) drug therapy; Z88.8 Allergy status to other drugs, medicaments and biological substances
CPT/HCPCS: 36415; 71045; 80053; 82550-TC; 83880; 84484; 85025; 85610-TC; 85730-TC; 93005; 99285

== ENCOUNTER 2021-07-03 18:58 | Emergency (ER) | payer OTHER, MEDICARE ==
[~2021-07-03] VITALS: Ht 198.1 cm; Wt 102.1 kg
[~2021-07-03 18:58] MED LIST changes: -HYDR50TA3 PO; +HYDR50TA4 PO
[2021-07-03 19:10] VITALS: BP_SYST 152
--- NOTE | 2021-07-03 19:25 | NUR ---
Patient to ER bed 1 to gown for evaluation. Side rails up. Report given to Valeria LUBIN.
--- NOTE | 2021-07-03 19:27 | NUR ---
PATIENT BROUGHT IN COMPLAINING OF RIGHT WRIST PAIN AFTER FALL OFF LADDER WITH SWELLING AND SKIN TEAR. PAIN 4/10. FULL RANGE OF MOTION. NO OTHER COMPLAINTS/INJURIES PER PATIENT OR NOTED. PAIN 4/10
[2021-07-03] MEDS ORDERED: DIPH-TET-PERTUS Vaccine 0.5 ML VIAL (ADACEL) I.M. ONE (19:30)
--- NOTE | 2021-07-03 19:46 | NUR ---
ER Dr. RUSSELL at bedside examining patient.
[2021-07-03] MEDS ORDERED: BACITRACIN 1 GM OINT TP ONE (20:00)
[2021-07-03] MEDS ORDERED: IBUP-1969 PO (20:34)
[2021-07-03 20:48] VITALS: BP_SYST 132
--- NOTE | 2021-07-03 20:48 | NUR ---
Patient given written and verbal discharge instructions and verbalizes understanding. ER MD discussed with patient the results and treatment provided. Patient in stable condition. ID arm band removed. Rx of MOTRIN given. Patient educated on pain management and to follow up with PMD. Pain Scale 0/10 Opportunity for questions provided and answered. Medication side effect fact sheet provided.
== END 2021-07-03 20:48 | disposition home or self-care (01) ==
LOC: SED 18:58
DX: S51.811A Laceration without foreign body of right forearm, initial encounter (principal); S63.501A Unspecified sprain of right wrist, initial encounter; W11.XXXA Fall on and from ladder, initial encounter; Y93.89 Activity, other specified; Y92.89 Other specified places as the place of occurrence of the external cause; Y99.8 Other external cause status
CPT/HCPCS: 90715; 99283